=== PATIENT | male | born 1940 | race Caucasian/White ===

== ENCOUNTER → 2016-08-27 | Outpatient (CLI) | payer MEDICARE, OTHER ==
[~2016-08-27] MED LIST: ASPIR-LOW81 MG PO; CRESTOR20 MG PO; FISH OIL CONC1000 MG PO; GLUCOSAMINE/CHONDROI PO; LISINOPRIL10 MG PO; NORVASC10 MG PO; OSCAL 500MG/VI500 MG PO; SAW PALMETTO PO; VITAMIN C500 MG PO
== END ==
LOC: COL.VAS 08-24 09:00
DX: I35.0 Nonrheumatic aortic (valve) stenosis (principal); R94.39 Abnormal result of other cardiovascular function study; R01.0 Benign and innocent cardiac murmurs